=== PATIENT | male | born 1965 | race Caucasian/White ===

== ENCOUNTER 2024-11-09 11:07 | Emergency (ER) | payer SELFPAY ==
[2024-11-09] MEDS ORDERED: Lidocaine 1% w/Epinephrine 1:100K 20 ML VIAL ONE (11:23)
[2024-11-09 12:12] LABS: #Basophils 0.10 10x3/uL (0.0-0.2); #Eosinophils 0.30 10x3/uL (0.0-0.7); #Monocytes 0.98 10x3/uL (0.11-0.59); #Neutrophils 14.06 10x3/uL (1.40-6.50); %Basophils 0.6 % (0.0-1.0); %Eosinophils 1.7 % (0.0-10.0); %Lymphocytes 12.1 % (21.0-51.0); %Monocytes 5.5 % (0.0-10.0); %Neutrophils 79.6 % (42.0-75.0); Hematocrit 46.1 % (42.0-52.0); Hemoglobin 16.4 g/dL (14.0-18.0); Mean Corpuscular Hemoglobin 29.3 pg (27.0-31.0); Mean Corpuscular Volume 82.3 fL (78.0-98.0); Platelet Count 288 10x3/uL (130-400); Red Blood Cell (RBC) Count 5.60 mill/uL (4.70-6.10); White Blood Cell (WBC) Count 17.66 10x3/uL (4.8-10.8)
[2024-11-09] MEDS ORDERED: Ibuprofen 800 MG TAB ONE (12:12)
[2024-11-09] MEDS ORDERED: Acetaminophen 500 MG TAB ONE (12:12)
[2024-11-09 12:43] LABS: ALT (SGPT) 52 U/L (Less than 45); AST (SGOT) 36 U/L (11-34); Albumin 3.9 g/dL (3.1-4.5); Alkaline Phosphatase 119 U/L (40-110); Anion Gap 20 mmol/L (10-20); BUN (Urea Nitrogen) 9 mg/dL (8.4-25.7); Bilirubin, Total 1.0 mg/dL (0.3-1.2); Calc. Creatinine Clearance 0 mL/min (70-130); Calcium 9.8 mg/dL (7.8-10.44); Carbon Dioxide 19 mmol/L (22-29); Chloride 99 mmol/L (98-107); Globulin 4.4 g/dL (2.4-3.5); Glucose 408 mg/dL (70-105); Potassium 4.0 mmol/L (3.5-5.1); Sodium 134 mmol/L (136-145)
[2024-11-09] MEDS ORDERED: Vancomycin (BATCH) 2.5 GM in Premix 1 BAG IVPB SCH (13:00)
[2024-11-09] MEDS ORDERED: cefTRIAXone (ROCEPHIN) 1 GM VIAL ONE (15:20)
[2024-11-09] MEDS ORDERED: Iopamidol-370 76% 500 ML MDV (1 ML CHARGE) ONE (16:05)
== END 2024-11-09 16:04 | disposition home or self-care (01) ==
LOC: ERS 11:07
DX: L03.221 Cellulitis of neck (principal); L02.11 Cutaneous abscess of neck; E11.9 Type 2 diabetes mellitus without complications; F17.220 Nicotine dependence, chewing tobacco, uncomplicated
CPT/HCPCS: 10060; 36416; 70491; 80053; 83605; 85025; 87040; 93005; 96365; 96366; 96367; 96375; J0696; J1815; J3373